=== PATIENT | female | born 1945 | race Caucasian/White ===

== ENCOUNTER → 2016-08-01 08:46 | Outpatient (CLI) | payer MEDICARE, BC ==
[2016-08-01 10:22] LABS: CREATININE - SERUM 1.6 mg/dL (0.6-1.3)
== END | disposition home or self-care (01) ==
LOC: D.CT 08:46
PROVIDERS: Internal Medicine Medical Oncology
DX: C19 Malignant neoplasm of rectosigmoid junction (principal)